=== PATIENT | male | born 1950 | race Caucasian/White ===

== ENCOUNTER 2017-02-21 22:50 | Emergency (ER) | payer MEDICARE, OTHER ==
[2017-02-21 20:16] LABS: BASOPHILS 0.3 %; BASOPHILS ABSOLUTE 0.02 10/3/uL (0.0-0.16); EOSINOPHILS 4.9 %; EOSINOPHILS ABSOLUTE 0.35 10/3/uL (0.0-0.53); ER CBC TAT 0 Hrs 03 Mins; HEMATOCRIT 33.5 % (40.0-51.0); HEMOGLOBIN 9.8 g/dL (13.6-17.8); IMMATURE GRANULOCYTES 0.1 %; IMMATURE GRANULOCYTES ABSOLUTE 0.01 10/3/uL (0.0-0.11); LYMPHOCYTES 18.6 %; LYMPHOCYTES ABSOLUTE 1.34 10/3/uL (0.67-4.30); MEAN CORPUS HGB CONC 29.3 g/dL (32.0-36.0); MEAN CORPUSCULAR HEMOGLOB 20.4 pg (26.0-34.0); MEAN CORPUSCULAR VOLUME 69.8 fL (80-100); MEAN PLATELET VOLUME 9.5 fL (9.2-13.0); MONOCYTES 8.6 %; MONOCYTES ABSOLUTE 0.62 10/3/uL (0.21-1.20); NEUTROPHILS 67.5 %; NEUTROPHILS ABSOLUTE 4.85 10/3/uL (2.02-8.40); PLATELET COUNT 240 10/3/uL (150-400); RBC DISTRIBUTION WIDTH 19.6 % (12.0-16.0); WHITE BLOOD CELLS 7.2 10/3/uL (4.5-10.5)
[2017-02-21 20:18] LABS: MANUAL DIFF NO %
[2017-02-21 20:37] LABS: A/G RATIO 0.9 (0.7-1.9); ALBUMIN 3.8 G/DL (3.5-5.0); ALKALINE PHOSPHATASE 51 U/L (45-117); BUN (BLOOD UREA NITROGEN) 19 MG/DL (6-23); CALCIUM, SERUM 8.8 MG/DL (8.5-10.4); CHLORIDE, SERUM 100 MMOL/L (96-112); CO2 (CARBON DIOXIDE) 24 MMOL/L (24-34); GFR AFRICAN AMERICAN 66 ML/MIN (>=60); GFR NON AFRICAN AMERICAN 57 ML/MIN (>=60); GLOBULIN 4.2 G/DL (2.5-4.1); GLUCOSE, SERUM 127 MG/DL (60-99); SGOT(AST) 56 U/L (5-40); SGPT(ALT) 38 U/L (5-65); SODIUM, SERUM 133 MMOL/L (135-148); TOTAL BILIRUBIN 0.5 MG/DL (0-1.2)
[2017-02-21 20:44] LABS: ANISOCYTOSIS 1+ (5-10/OIF) (0-5/OIF); PLATELET ESTIMATE ADQ (ADEQUATE)
[2017-02-21 21:31] LABS: INTERNATIONAL NORMAL RATI 2.6 UNITS (-); PARTIAL THROMBO TIME 37.3 SEC (22.5-37.2); PROTIME (NOT ORD) 27.9 SEC (12.0-14.5)
[2017-02-21 21:36] LABS: TROPONIN I <0.02 NG/ML (<0.05)
[2017-02-21 21:53] LABS: LACTATE 1.2 MMOL/L (0.3-2.4)
[2017-02-21 21:54] LABS: PROCALCITONIN 0.11 ng/mL (<0.5)
[2017-02-21 22:03] LABS: INFLUENZA A SCREEN NEGATIVE (NEGATIVE); INFLUENZA B SCREEN NEGATIVE (NEGATIVE)
[~2017-02-21 22:50] MED LIST: ACET500CAP PO; ALTOPREV40 MG PO; AMB5 PO; ASAB PO; BRILINTA90 MG PO; CORDARONE PO; COREG12 PO; COREG25 PO; COUMADIN3 MG PO; COUMADIN4 MG PO; DRONED400 PO; DSS PO; EXELON6 MG PO; HUMALOG SC; HUMALOGPEN SC; IBU400 PO; KLONO5 PO; LANTUS SC; LANTUSCART SC; LEVEMFLXPN SC; LOVENOX80 SC; LYRICA50 PO; MEVACOR PO; MULTIVITAMI1 PO; NITROSTAT0.4 MG SL; NOVOPEN SC; PRILO PO; PRIN20 PO; PROVHFA INH; REFRES1 OPH; RESTORIL30 MG PO; SEROQUEL200 MG PO; SEROQUEL400 MG PO; STOOL SOFTNER OTC PO; TEARS NATURA OPH; VOLTAREN1 % TOP; ZESTORETIC1 TA1 PO; ZOL50 PO
[2017-06-07] MEDS ORDERED: VENTOLIN HFA INH (11:44)
[2017-06-07] MEDS ORDERED: SYMBICORT 80/4.1 INH INH (11:45)
[2017-06-07] MEDS ORDERED: PLAVIX PO (11:50)
[2017-06-07] MEDS ORDERED: LOVENOX80 SC (11:51)
[2017-06-07] MEDS ORDERED: NITROSTAT0.4 MG SL (11:57)
== END 2017-02-21 23:49 | disposition home or self-care (01) ==
LOC: ER 22:50
PROVIDERS: Emergency Medicine; Nurse Practitioner
DX: R06.00 Dyspnea, unspecified (principal); R05 Cough; D64.9 Anemia, unspecified; I25.2 Old myocardial infarction; I10 Essential (primary) hypertension; F32.9 Major depressive disorder, single episode, unspecified; E11.9 Type 2 diabetes mellitus without complications; I48.91 Unspecified atrial fibrillation; Z95.1 Presence of aortocoronary bypass graft; Z95.5 Presence of coronary angioplasty implant and graft; Z87.891 Personal history of nicotine dependence; Z88.2 Allergy status to sulfonamides; Z88.5 Allergy status to narcotic agent; Z88.8 Allergy status to other drugs, medicaments and biological substances; Z91.040 Latex allergy status; Z79.4 Long term (current) use of insulin; Z79.82 Long term (current) use of aspirin; Z79.01 Long term (current) use of anticoagulants; Z79.899 Other long term (current) drug therapy
CPT/HCPCS: 71020; 80053; 83605; 83880; 84145; 84484; 85025; 85610; 85730; 87040; 87804; 93005; 96372; 99285